=== PATIENT | female | born 1960 | race Caucasian/White ===

== ENCOUNTER 2022-08-27 12:23 | Day surgery (SDC) | payer BC, OTHER ==
[~2022-08-27] VITALS: Ht 160 cm; Wt 57.5 kg
[~2022-08-27 12:23] MED LIST: NORCO 5-325 TA1 EACH PO; PERCOCET 7.5-31 EACH PO; PRENA1 SOFTGEL1 EACH; SYNTHROID150 MCG
[2022-08-27 12:51] VITALS: BP 126/73
--- NOTE | 2022-08-27 14:51 | NUR ---
08/27/22 1451 Zulema Henderson 1446 PATIENT ARRIVES TO PACU SLEEPING, AWAKENS WITH REPEATED VERBAL STIMULI, BACK TO SLEEP WHEN NOT STIMULATED. RESP EVEN AND UNLABORED, NC AT 3 LITERS, TURNED OFF AFTER ARRIVAL TO PACU.
[2022-08-27 15:51] VITALS: BP 135/76
--- NOTE | 2022-08-29 10:59 | OR ---
[facility] [address], [place] [address] Signed DATE OF OPERATION: 08/27/2022 SURGEON: Braeden Melvin MD PREOPERATIVE DIAGNOSES: 1. History of colon polyp in 2007; last colonoscopy 2011 negative. 2. Family history of colon cancer paternal side, uncertain identified relative. POSTOPERATIVE DIAGNOSIS: Polyps x2, rectosigmoid and sigmoid. PROCEDURE: Total colonoscopy to the cecum with cold morcellation polypectomy x1 and cold snare polypectomy x1. ANESTHESIA: Intravenous sedation; fentanyl 100 mcg and Versed 7 mg. INDICATION: This 61-year-old white woman is a patient of Dr. López. She is known to me from the past having undergone colonoscopy in 2012. She underwent colonoscopy in 2007 also which showed a polyp, which was a tubular adenoma which was resected. She does have family history of colon cancer on her father's side, but uncertain as to which relative. Her father and brothers have not had polyps or colon cancer. She is admitted at this time to undergo colonoscopy. She understands the risk of bleeding, infection, and perforation. FINDINGS: The prep was excellent. Complete colonoscopy was undertaken to the cecum without question full intubation of the cecum. Ileocecal valve and appendiceal orifice were normal. The remaining colon was normal except for polyp at the sigmoid and at the rectosigmoid, both were excised. One with cold snare technique, the other cold morcellation technique. Retroflexed view was normal. DESCRIPTION OF PROCEDURE: The patient was brought to the endoscopy suite and placed in the lateral decubitus position, given intravenous sedation to the point of slurred speech and nystagmus. Digital rectal examination was normal. Electronically Signed By: BRAEDEN MELVIN MD 08/29/22 1059 PATIENT NAME: ISMAEL MCCLURE OPERATIVE REPORT DATE OF : 58 REPORT #: [id number] PHYSICIAN: BRAEDEN MELVIN MD PCP: DEBBI LÓPEZ MD REPORT IS CONFIDENTIAL AND NOT TO BE RELEASED WITHOUT AUTHORIZATION [facility] [address], [place] [address] Signed An Olympus video colonoscope was passed in the rectum and manipulated throughout the colon noting at the sigmoid, a small sessile polyp, this was excised with cold snare technique. The specimen was passed for pathology. The scope was then advanced beyond this ultimately to the cecum. The ileocecal valve and appendiceal orifice were normal. The scope was withdrawn and examination throughout showed no sign of other abnormality until the sigmoid where the previous polypectomy site was noted and more distally the rectosigmoid where another small polyp was noted. This was excised with cold morcellation technique after evaluation with narrow band imaging. This was passed for pathology as well. The scope was withdrawn and retroflexed view in the rectum showed no other abnormalities. Scope was removed and the patient was taken to recovery room in good condition. CONCLUDING DIAGNOSIS: Polyps x2. PLAN: Recommend repeat colonoscopy in 5 years, sooner if clinically indicated. She will return to the ongoing care of Dr. López otherwise. MD IRASEMA Mcconnell/RANDY /[id number] cc: Debbi López MD Copies: ~ Electronically Signed By: BRAEDEN MELVIN MD 08/29/22 1059 PATIENT NAME: ISMAEL MCCLURE OPERATIVE REPORT DATE OF : 58 REPORT #: [id number] PHYSICIAN: BRAEDEN MELVIN MD PCP: DEBBI LÓPEZ MD REPORT IS CONFIDENTIAL AND NOT TO BE RELEASED WITHOUT AUTHORIZATION
--- NOTE | 2022-08-31 09:41 | PATH ---
[facility] [address] [place], [place] [address] Signed SPECIMEN(S): A SIGMOID POLYP 1 SPECIMEN(S): B SIGMOID POLYP 2 SPECIMEN SOURCE: A. SIGMOID POLYP 1 B. SIGMOID POLYP 2 CLINICAL HISTORY: Personal history of colon polyp. Post-op dx: Polyps x2. FINAL PATHOLOGIC DIAGNOSIS: A. Colon, sigmoid #1, polypectomy: - Hyperplastic polyp. - There is no evidence of dysplasia or malignancy. B. Colon, sigmoid #2, polypectomy: - No significant histopathology. - There is no evidence of neoplasia. COMMENT: Regarding specimen B, the sections from the specimen are architecturally normal without crypt distortion. There is no acute or chronic inflammation. There are no abnormal infiltrates. There is no evidence of inflammatory, hyperplastic or adenomatous polyps. TWK:[id number] MICROSCOPIC EXAMINATION: Histologic sections of all submitted blocks are examined by light microscopy. These findings, together with the gross examination, support the pathologic diagnosis. GROSS DESCRIPTION: A. The specimen, labeled and designated "Jang, sigmoid polyp #1," is received in formalin and consists of one del angel soft tissue fragment, 0.7 cm. Entirely submitted in (A1). B. The specimen, labeled and designated "Jang, sigmoid polyp #2," is received in formalin and consists of one del angel soft tissue fragment, 0.4 cm. Entirely submitted in (B1). VB (under the direct supervision of a pathologist) The Gross Description was prepared using a voice recognition system. The report was reviewed for accuracy; however, sound-alike word errors, addition and/or deletions may occur. If there is any PATIENT NAME: ISMAEL JANG PATHOLOGY DATE OF : 58 REPORT #: [id number] PHYSICIAN: MAHSA PATHOLOGY PCP: SALO HEALY MD REPORT IS CONFIDENTIAL AND NOT TO BE RELEASED WITHOUT AUTHORIZATION [facility] [address] [facility] [place] [address] Signed question about this report, please contact Client Services. PERFORMING LABORATORY: The technical component was performed by [facility], [address] [place] [address] (CLIA# [id number]). The professional interpretation was performed by [email or web address], [facility], [address] [place] [id number] (CLIA#: [id number]). Diagnostician: Carlos Romero MD Pathologist Electronically Signed 08/31/2022 Copies: ~ PATIENT NAME: ISMAEL JANG PATHOLOGY DATE OF : 58 REPORT #: [id number] PHYSICIAN: MAHSA PATHOLOGY PCP: SALO HEALY MD REPORT IS CONFIDENTIAL AND NOT TO BE RELEASED WITHOUT AUTHORIZATION
== END 2022-08-27 15:59 | disposition home or self-care (01) ==
LOC: DS 12:23 → OPS 12:23 → DS 14:00 → OPS 15:59
PROVIDERS: ATTEND Surgery
PROC: 0DBN7ZX Excision of Sigmoid Colon, Via Natural or Artificial Opening, Diagnostic (ICD-10-PCS; principal; 2022-08-27 14:00)
DX: Z12.11 Encounter for screening for malignant neoplasm of colon (principal); K63.5 Polyp of colon; F17.210 Nicotine dependence, cigarettes, uncomplicated; E03.9 Hypothyroidism, unspecified; J68.3 Other acute and subacute respiratory conditions due to chemicals, gases, fumes and vapors; Z80.0 Family history of malignant neoplasm of digestive organs; Z86.010 Personal history of colon polyps; Z86.16 Personal history of COVID-19
CPT/HCPCS: 99153; G0500; J2250; J3010; J7121

== ENCOUNTER 2024-01-10 12:01 | Emergency (ER) | payer OTHER ==
[~2024-01-10] VITALS: Ht 160 cm; Wt 57.2 kg
[2024-01-10] MEDS ORDERED: IBUPROFEN 600 MG TAB PO ONE (12:15)
[2024-01-10] MEDS ORDERED: LEVOTHYROXINE88 MCG PO (12:18)
[2024-01-10] MEDS ORDERED: VENTOLIN HFA18 GM INH (12:19)
[2024-01-10 13:50] VITALS: BP 107/73
== END 2024-01-10 13:50 | disposition home or self-care (01) ==
LOC: ED 12:01
DX: R51.9 Headache, unspecified (principal); J06.9 Acute upper respiratory infection, unspecified; Z20.822 Contact with and (suspected) exposure to COVID-19; Z87.891 Personal history of nicotine dependence; Z88.0 Allergy status to penicillin; Z79.890 Hormone replacement therapy; Z79.899 Other long term (current) drug therapy
CPT/HCPCS: 99284; A9270; U0002

== ENCOUNTER 2024-03-01 17:36 | Emergency (ER) | payer OTHER ==
[~2024-03-01] VITALS: Ht 160 cm; Wt 54.4 kg
[~2024-03-01 17:36] MED LIST changes: +LEVOTHYROXINE88 MCG PO; +VENTOLIN HFA18 GM INH
--- OUTSIDE RECORDS SUMMARY | 2024-03-01 17:43 | XMS ---
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 E.D. VISIT COUNT (12 MO.) [address] [facility] TOTAL 3 NOTE: Visits indicate total known visits. 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
[2024-03-01 18:44] LABS: INFLUENZA B NAA NEGATIVE (NEGATIVE); RESPIRATORY SYNCYTIAL VIR NAA NEGATIVE (NEGATIVE)
[2024-03-01 19:41] VITALS: BP 116/64
== END 2024-03-01 19:43 | disposition left against medical advice (07) ==
LOC: ED 17:36
PROVIDERS: Emergency Medicine
DX: R42 Dizziness and giddiness (principal); Z53.21 Procedure and treatment not carried out due to patient leaving prior to being seen by health care provider
CPT/HCPCS: 87502; U0002